=== PATIENT | male | born 1995 | race Hispanic/Latino ===

== ENCOUNTER 2019-09-19 19:42 | Inpatient (IN) | payer OTHER, SELFPAY ==
[~2019-09-19] VITALS: Ht 190.5 cm; Wt 106.5 kg
[2019-09-19 20:23] LABS: BASOPHILS % (AUTO) 0.1 % (0.0-5.0); HEMATOCRIT 43.3 % (42-54); LYMPHOCYTES % (AUTO) 8.7 % (21.0-51.0); MEAN CORPUSCULAR HEMOGLOBIN 27.8 pg (27.0-33.0); MEAN CORPUSCULAR HGB CONC 34.2 g/dL (32.0-36.0); MEAN CORPUSCULAR VOLUME 81.4 fL (80-100); MONOCYTES % (AUTO) 4.3 % (3.0-13.0); NEUTROPHILS % (AUTO) 86.2 % (40.0-77.0); PLATELET COUNT (AUTO) 292 K/uL (130-400); RED BLOOD CELL COUNT(AUTO) 5.32 MIL/uL (4.50-6.20); RED CELL DISTRIBUTION WIDTH 13.2 % (11.0-15.5); WHITE BLOOD COUNT (AUTO) 9.6 K/uL (4.8-10.8)
[2019-09-19 20:32] LABS: CREATININE 0.8 mg/dL (0.5-1.5); POTASSIUM 4.5 mmol/L (3.5-5.1)
[2019-09-19 20:36] LABS: ALBUMIN 3.6 g/dL (3.5-5.0); BILIRUBIN,TOTAL 0.6 mg/dL (0.2-1.0); TOTAL PROTEIN, SERUM 8.3 g/dL (6.0-8.3)
[2019-09-19] MEDS: ALBUTEROL INHALER 90MCG/INH IH SCH (22:00)
[2019-09-19] MEDS ORDERED: ERGOCALCIFEROL (VITAMIN D2) 50,000 UNIT CAPSULE PO ONE (22:00)
[2019-09-19] MEDS ORDERED: ALBUTEROL INHALER 90MCG/INH IH PRN (22:00)
[2019-09-19] MEDS ORDERED: SODIUM CHLORIDE 0.9% 1000ML 1,000 ML IV SCH ×2 (22:02→22:15)
[2019-09-19 22:19] LABS: CRP QUANTITATIVE 78.2 mg/L (0.00-9.0); MAGNESIUM 2.5 mg/dL (1.80-2.40)
[2019-09-19 22:25] LABS: HEMOGLOBIN A1C 5.9 % (4.0-6.0)
[2019-09-19 22:25] LABS: ABG BASE EXCESS 1.5 mmol/L (-2.0-3.0); ABG HCO3 26.1 mmol/L (21.0-28.0); ABG PCO2 41 mmHg (35-48)
[2019-09-19 22:29] LABS: INR 0.99 (0.85-1.15); PARTIAL THROMBOPLASTIN TIME 28.4 SEC (26.3-35.5); PROTHROMBIN TIME 10.7 SEC (9.6-11.6)
[2019-09-19] MEDS ORDERED: DEXAMETHASONE SOD PHOSPHATE 4 MG/ML 5ML VIAL ONE (22:38)
[2019-09-19] MEDS ORDERED: AZITHROMYCIN 500MG+NS 250ML 250 ML IV ONE (22:38)
[2019-09-19] MEDS ORDERED: CEFTRIAXONE SODIUM 1 GM ONE (22:39)
[2019-09-19] MEDS ORDERED: ASCORBIC ACID 500 MG TAB ONE (23:32)
[2019-09-19] MEDS ORDERED: ALBUTEROL INHALER 90MCG/INH IH ONE (23:32)
[2019-09-19] MEDS ORDERED: ZINC SULFATE 220 CAPSULE ONE (23:33)
[2019-09-19] MEDS ORDERED: ENOXAPARIN SODIUM 40 MG/0.4 ML SYRINGE SQ ONE (23:33)
[2019-09-19] MEDS ORDERED: FAMOTIDINE 20MG TAB 20 MG TAB ONE (23:33)
[2019-09-19] MEDS ORDERED: ERGOCALCIFEROL (VITAMIN D2) 50,000 UNIT CAPSULE ONE (23:33)
[2019-09-19] MEDS ORDERED: ONDANSETRON HCL 4 MG/2 ML VIAL ONE (23:45)
[2019-09-20] MEDS ORDERED: ONDANSETRON HCL 4 MG/2 ML VIAL IV PRN
[2019-09-20] MEDS ORDERED: NITROGLYCERIN 0.4 MG SL TAB SL PRN
[2019-09-20] MEDS ORDERED: ACETAMINOPHEN 325 MG TAB PO PRN ×2
[2019-09-20] MEDS ORDERED: DIPHENHYDRAMINE HCL 25 MG CAPSULE PO PRN
[2019-09-20 01:00] LABS: APPEARANCE,URINE Clear (CLEAR); BILIRUBIN,URINE Small (NEGATIVE); COLOR,URINE Dark Yellow (YELLOW); GLUCOSE, URINE (UA) Negative (NEGATIVE); KETONES,URINE Trace mg/dL (NEGATIVE); LEUKOCYTE ESTERASE ,URINE Trace (NEGATIVE); NITRATE,URINE Negative (NEGATIVE); OCCULT BLOOD,URINE Negative (NEGATIVE); PROTEIN,URINE POS 2+ mg/dL (NEGATIVE)
[2019-09-20 01:09] LABS: AMPHET/METH SCREEN,URINE NEGATIVE (NEGATIVE); BACTERIA,URINE Few /HPF (None Seen); BARBITURATE SCREEN, URINE NEGATIVE (NEGATIVE); BENZODIAZEPINES SCREEN,URINE NEGATIVE (NEGATIVE); CANNABINOID SCREEN,URINE NEGATIVE (NEGATIVE); COCAINE SCREEN,URINE NEGATIVE (NEGATIVE); MUCUS,URINE Few LPF (None Seen); OPIATE SCREEN,URINE NEGATIVE (NEGATIVE); PHENCYCLIDINE SCREEN,URINE NEGATIVE (NEGATIVE); RBC,URINE 0-1 /HPF (0-1); SQUAMOUS EPITHELIAL CELL,UR 0-2 /HPF (0-2); WBC,URINE 0-1 /HPF (0-1)
[2019-09-20] MEDS: ALBUTEROL INHALER 90MCG/INH IH SCH ×6 (02:00→22:00)
[2019-09-20] MEDS ORDERED: METHYLPREDNISOLONE SOD SUCC 40MG/ML 1ML ONE ×3 (04:29→20:11)
[2019-09-20 05:20] LABS: HEMATOCRIT 39.8 % (42-54); LYMPHOCYTES % (AUTO) 10.2 % (21.0-51.0); MEAN CORPUSCULAR HGB CONC 33.7 g/dL (32.0-36.0); MEAN CORPUSCULAR VOLUME 83.1 fL (80-100); MONOCYTES % (AUTO) 4.4 % (3.0-13.0); NEUTROPHILS % (AUTO) 84.6 % (40.0-77.0); PLATELET COUNT (AUTO) 271 K/uL (130-400); RED BLOOD CELL COUNT(AUTO) 4.79 MIL/uL (4.50-6.20); RED CELL DISTRIBUTION WIDTH 13.5 % (11.0-15.5); WHITE BLOOD COUNT (AUTO) 6.2 K/uL (4.8-10.8)
[2019-09-20 06:03] LABS: ALBUMIN 3.1 g/dL (3.5-5.0); BILIRUBIN,TOTAL 0.5 mg/dL (0.2-1.0); CREATININE 0.7 mg/dL (0.5-1.5); POTASSIUM 4.6 mmol/L (3.5-5.1); TOTAL PROTEIN, SERUM 7.5 g/dL (6.0-8.3)
[2019-09-20] MEDS ORDERED: ASCORBIC ACID 500 MG TAB ONE (08:32)
[2019-09-20] MEDS ORDERED: ENOXAPARIN SODIUM 40 MG/0.4 ML SYRINGE SQ ONE (08:32)
[2019-09-20] MEDS ORDERED: FAMOTIDINE/PF 20 MG/2 ML VIAL IV ONE ×2 (08:32→20:11)
[2019-09-20] MEDS ORDERED: ZINC SULFATE 220 CAPSULE ONE (08:32)
[2019-09-20] MEDS: FAMOTIDINE 20MG TAB 20 MG TAB PO SCH ×2 (09:00→21:00)
[2019-09-20] MEDS: ASCORBIC ACID 500 MG TAB PO SCH (09:00)
[2019-09-20] MEDS: ZINC SULFATE 220 CAPSULE PO SCH (09:00)
[2019-09-20] MEDS: ENOXAPARIN SODIUM 40 MG/0.4 ML SYRINGE SQ SCH (09:00)
[2019-09-20] MEDS: METHYLPREDNISOLONE SOD SUCC 40MG/ML 1ML IVP SCH ×3 (09:00→21:00)
--- NOTE | 2019-09-20 19:08 | NUR ---
SW NOTE SW attempted to reach patient's brother, Sumit Ro but only spoke to brother's girlfriend. Brother's girlfriend stated that patient's brother had just left but would be back later. She stated that patient's mother is presently also in the hospital as well. SW attempted to call back patient's brother but there was no answer. SW will continue to attempt to contact patient or family to complete IA.
[2019-09-20] MEDS ORDERED: CEFTRIAXONE SODIUM 1 GM ONE (20:11)
[2019-09-20] MEDS ORDERED: AZITHROMYCIN 500MG+NS 250ML 250 ML IV ONE (20:11)
[2019-09-20] MEDS: CEFTRIAXONE SODIUM 1 GM IV SCH (22:00)
[2019-09-20] MEDS: AZITHROMYCIN 500MG+NS 250ML 250 ML IV SCH (22:00)
[2019-09-21] MEDS: ALBUTEROL INHALER 90MCG/INH IH SCH ×6 (02:00→22:00)
[2019-09-21 05:11] LABS: HEMATOCRIT 40.2 % (42-54); LYMPHOCYTES % (AUTO) 13.6 % (21.0-51.0); MEAN CORPUSCULAR HEMOGLOBIN 27.6 pg (27.0-33.0); MEAN CORPUSCULAR HGB CONC 33.8 g/dL (32.0-36.0); MEAN CORPUSCULAR VOLUME 81.7 fL (80-100); MONOCYTES % (AUTO) 10.1 % (3.0-13.0); NEUTROPHILS % (AUTO) 75.7 % (40.0-77.0); PLATELET COUNT (AUTO) 328 K/uL (130-400); RED BLOOD CELL COUNT(AUTO) 4.92 MIL/uL (4.50-6.20); RED CELL DISTRIBUTION WIDTH 13.2 % (11.0-15.5); WHITE BLOOD COUNT (AUTO) 6.2 K/uL (4.8-10.8)
[2019-09-21 05:19] LABS: ALBUMIN 3.3 g/dL (3.5-5.0); BILIRUBIN,TOTAL 0.6 mg/dL (0.2-1.0); CREATININE 0.6 mg/dL (0.5-1.5); CRP QUANTITATIVE 45.4 mg/L (0.00-9.0); POTASSIUM 4.5 mmol/L (3.5-5.1); TOTAL PROTEIN, SERUM 7.1 g/dL (6.0-8.3)
[2019-09-21] MEDS ORDERED: METHYLPREDNISOLONE SOD SUCC 40MG/ML 1ML ONE ×3 (08:40→20:16)
[2019-09-21] MEDS ORDERED: ASCORBIC ACID 500 MG TAB ONE (08:40)
[2019-09-21] MEDS ORDERED: FAMOTIDINE 20MG TAB 20 MG TAB ONE ×2 (08:41→20:16)
[2019-09-21] MEDS ORDERED: ZINC SULFATE 220 CAPSULE ONE (08:41)
[2019-09-21] MEDS ORDERED: ENOXAPARIN SODIUM 40 MG/0.4 ML SYRINGE SQ ONE (08:42)
[2019-09-21] MEDS: FAMOTIDINE 20MG TAB 20 MG TAB PO SCH ×2 (09:01→21:00)
[2019-09-21] MEDS: METHYLPREDNISOLONE SOD SUCC 40MG/ML 1ML IVP SCH ×3 (09:01→21:00)
[2019-09-21] MEDS: ENOXAPARIN SODIUM 40 MG/0.4 ML SYRINGE SQ SCH (09:01)
[2019-09-21] MEDS: ZINC SULFATE 220 CAPSULE PO SCH (09:01)
[2019-09-21] MEDS: ASCORBIC ACID 500 MG TAB PO SCH (09:01)
--- NOTE | 2019-09-21 18:37 | NUR ---
note spoke to pt and states resides at home with mother, but she is currently hospitalized at another hospital. pt is independent with adls/ambulation, no dme. [facility] dc plan is back home at ut. discussed community resources available for followup care, rx assist $4 program [facility],and [facility] for assist,pt verbalizes understanding. Addendum: 09/21/19 at 1839 by GABRIELA IRVING CM Amended: Links added.
[2019-09-21] MEDS ORDERED: AZITHROMYCIN 500MG+NS 250ML 250 ML IV ONE (20:16)
[2019-09-21] MEDS ORDERED: CEFTRIAXONE SODIUM 1 GM ONE (20:16)
[2019-09-21] MEDS ORDERED: SODIUM CHLORIDE 0.9% 100 ML IV ONE (20:20)
[2019-09-21] MEDS: AZITHROMYCIN 500MG+NS 250ML 250 ML IV SCH (22:00)
[2019-09-21] MEDS: CEFTRIAXONE SODIUM 1 GM IV SCH (22:00)
[2019-09-22] MEDS: ALBUTEROL INHALER 90MCG/INH IH SCH ×6 (02:00→22:00)
[2019-09-22 06:59] LABS: ALBUMIN 2.8 g/dL (3.5-5.0); BILIRUBIN,TOTAL 0.7 mg/dL (0.2-1.0); CREATININE 0.5 mg/dL (0.5-1.5); CRP QUANTITATIVE 20.4 mg/L (0.00-9.0); POTASSIUM 3.4 mmol/L (3.5-5.1); TOTAL PROTEIN, SERUM 6.5 g/dL (6.0-8.3)
[2019-09-22 07:37] LABS: BASOPHILS % (AUTO) 0.1 % (0.0-5.0); HEMATOCRIT 42.9 % (42-54); LYMPHOCYTES % (AUTO) 12.9 % (21.0-51.0); MEAN CORPUSCULAR HEMOGLOBIN 27.8 pg (27.0-33.0); MEAN CORPUSCULAR HGB CONC 33.8 g/dL (32.0-36.0); MEAN CORPUSCULAR VOLUME 82.3 fL (80-100); MONOCYTES % (AUTO) 7.5 % (3.0-13.0); NEUTROPHILS % (AUTO) 78.8 % (40.0-77.0); PLATELET COUNT (AUTO) 430 K/uL (130-400); RED BLOOD CELL COUNT(AUTO) 5.21 MIL/uL (4.50-6.20); RED CELL DISTRIBUTION WIDTH 13.2 % (11.0-15.5); WHITE BLOOD COUNT (AUTO) 9.5 K/uL (4.8-10.8)
[2019-09-22] MEDS ORDERED: ZINC SULFATE 220 CAPSULE ONE (07:52)
[2019-09-22] MEDS ORDERED: ENOXAPARIN SODIUM 40 MG/0.4 ML SYRINGE SQ ONE (07:52)
[2019-09-22] MEDS ORDERED: METHYLPREDNISOLONE SOD SUCC 40MG/ML 1ML ONE ×2 (07:52→21:10)
[2019-09-22] MEDS ORDERED: ASCORBIC ACID 500 MG TAB ONE (07:52)
[2019-09-22] MEDS ORDERED: FAMOTIDINE/PF 20 MG/2 ML VIAL IV ONE (07:53)
[2019-09-22] MEDS ORDERED: POTASSIUM CHLORIDE 10MEQ/100ML 100 ML IV PRN (08:00)
[2019-09-22] MEDS ORDERED: POTASSIUM CHLORIDE 20 MEQ ERTAB PO PRN (08:00)
[2019-09-22] MEDS ORDERED: POTASSIUM CHLORIDE 10% ELIXIR 20 MEQ/15 ML UDCUP PO PRN (08:00)
[2019-09-22] MEDS ORDERED: LIDOCAINE HCL-MPF 1% 2ML VIAL IV PRN (08:00)
[2019-09-22] MEDS: METHYLPREDNISOLONE SOD SUCC 40MG/ML 1ML IVP SCH ×3 (09:00→21:00)
[2019-09-22] MEDS: ASCORBIC ACID 500 MG TAB PO SCH (09:00)
[2019-09-22] MEDS: ZINC SULFATE 220 CAPSULE PO SCH (09:00)
[2019-09-22] MEDS: FAMOTIDINE 20MG TAB 20 MG TAB PO SCH ×2 (09:00→21:00)
[2019-09-22] MEDS: ENOXAPARIN SODIUM 40 MG/0.4 ML SYRINGE SQ SCH (09:00)
[2019-09-22] MEDS ORDERED: AZITHROMYCIN 500MG+NS 250ML 250 ML IV ONE (21:10)
[2019-09-22] MEDS ORDERED: FAMOTIDINE 20MG TAB 20 MG TAB ONE (21:10)
[2019-09-22] MEDS ORDERED: CEFTRIAXONE SODIUM 1 GM ONE (21:10)
[2019-09-22] MEDS: CEFTRIAXONE SODIUM 1 GM IV SCH (22:00)
[2019-09-22] MEDS: AZITHROMYCIN 500MG+NS 250ML 250 ML IV SCH (22:00)
[2019-09-23] VITALS (7 sets, daily range): BP systolic 122–149; BP diastolic 67–98
[2019-09-23] MEDS: ALBUTEROL INHALER 90MCG/INH IH SCH ×6 (02:00→22:25)
--- NOTE | 2019-09-23 03:39 | NUR ---
Admission to 3rd Floor Received pt to floor via wheelchair. Alert and oriented. Moderated anxiety. Staff to monitor for SOB on exertion. Skin dry and intact. Pt currently on room air. Urinal at bedside. Call light within reach. instructed pt to call for assistance when attempting to ambulate to restroom and out of bed. Non skid socks on. Telemetry monitoring in place. Pt expresses anxiety regarding returning home. States that he lives alone and desires to feel better to return home so he can assist taking care of his mother who is currently hospitalized. Understands use of IS and MDI at bedside. Use of personal cell phone in room. Addendum: 09/23/19 at 0345 by CHRISTINE TORRES RN RN Amended: Links added.
[2019-09-23 08:02] LABS: BASOPHILS % (AUTO) 0.2 % (0.0-5.0); HEMATOCRIT 45.5 % (42-54); LYMPHOCYTES % (AUTO) 17.3 % (21.0-51.0); MEAN CORPUSCULAR HEMOGLOBIN 27.6 pg (27.0-33.0); MEAN CORPUSCULAR HGB CONC 33.8 g/dL (32.0-36.0); MEAN CORPUSCULAR VOLUME 81.7 fL (80-100); MONOCYTES % (AUTO) 7.4 % (3.0-13.0); PLATELET COUNT (AUTO) 521 K/uL (130-400); RED BLOOD CELL COUNT(AUTO) 5.57 MIL/uL (4.50-6.20); RED CELL DISTRIBUTION WIDTH 13.1 % (11.0-15.5); WHITE BLOOD COUNT (AUTO) 12.7 K/uL (4.8-10.8)
[2019-09-23 08:14] LABS: CREATININE 0.7 mg/dL (0.5-1.5)
[2019-09-23] MEDS: ASCORBIC ACID 500 MG TAB PO SCH (08:31)
[2019-09-23] MEDS: ZINC SULFATE 220 CAPSULE PO SCH (08:32)
[2019-09-23] MEDS: METHYLPREDNISOLONE SOD SUCC 40MG/ML 1ML IVP SCH ×3 (08:32→21:30)
[2019-09-23] MEDS: FAMOTIDINE 20MG TAB 20 MG TAB PO SCH ×2 (08:32→21:30)
[2019-09-23] MEDS: ENOXAPARIN SODIUM 40 MG/0.4 ML SYRINGE SQ SCH (08:33)
--- NOTE | 2019-09-23 08:47 | NUR ---
PATIENT AT REST SATURATING 93%, PATIENT BEGAN AMBULATING IN ROOM DESATURATED TO 89%, C/O MINOR SHORTNESS OF BREATH, NOTED PATIENT WITH STRONG NON PRODUCTIVE COUGH. INESSA SUNSHINE MADE AWARE
[2019-09-23] MEDS: GUAIFENESIN-DM 200/20 MG 10 ML PO PRN ×2 (14:34→21:30)
[2019-09-23] MEDS: BENZONATATE 100 MG CAPSULE PO PRN ×2 (14:36→21:30)
[2019-09-23] MEDS: AZITHROMYCIN 500MG+NS 250ML 250 ML IV SCH (21:30)
[2019-09-23] MEDS: CEFTRIAXONE SODIUM 1 GM IV SCH (21:30)
[2019-09-24] MEDS: ALBUTEROL INHALER 90MCG/INH IH SCH ×5 (03:01→18:04)
[2019-09-24 04:00] VITALS: BP 132/76
[2019-09-24 07:51] LABS: BASOPHILS % (AUTO) 0.2 % (0.0-5.0); HEMATOCRIT 45.3 % (42-54); LYMPHOCYTES % (AUTO) 15.6 % (21.0-51.0); MEAN CORPUSCULAR HEMOGLOBIN 27.6 pg (27.0-33.0); MEAN CORPUSCULAR VOLUME 81.2 fL (80-100); MONOCYTES % (AUTO) 7.7 % (3.0-13.0); NEUTROPHILS % (AUTO) 75.1 % (40.0-77.0); PLATELET COUNT (AUTO) 484 K/uL (130-400); RED BLOOD CELL COUNT(AUTO) 5.58 MIL/uL (4.50-6.20); RED CELL DISTRIBUTION WIDTH 12.9 % (11.0-15.5)
[2019-09-24 08:08] LABS: ALBUMIN 3.5 g/dL (3.5-5.0); BILIRUBIN,TOTAL 0.6 mg/dL (0.2-1.0); CREATININE 0.6 mg/dL (0.5-1.5); CRP QUANTITATIVE 6.9 mg/L (0.00-9.0); TOTAL PROTEIN, SERUM 7.6 g/dL (6.0-8.3)
[2019-09-24 09:04] VITALS: BP 133/80
[2019-09-24] MEDS: METHYLPREDNISOLONE SOD SUCC 40MG/ML 1ML IVP SCH ×2 (10:08→14:32)
[2019-09-24] MEDS: FAMOTIDINE 20MG TAB 20 MG TAB PO SCH (10:09)
[2019-09-24] MEDS: ASCORBIC ACID 500 MG TAB PO SCH (10:09)
[2019-09-24] MEDS: ZINC SULFATE 220 CAPSULE PO SCH (10:09)
[2019-09-24] MEDS: ENOXAPARIN SODIUM 40 MG/0.4 ML SYRINGE SQ SCH (10:10)
[2019-09-24 11:53] VITALS: BP 125/76
[2019-09-24] MEDS ORDERED: DEXA6TAB PO (15:19)
[2019-09-24] MEDS ORDERED: AZIT500T2 PO (15:19)
[2019-09-24 16:38] VITALS: BP 125/68
--- NOTE | 2019-09-24 17:50 | NUR ---
DISCHARGE INSTRUCTION PATIENT GIVEN DISCHARGE INSTRUCTIONS AND VERBALIZED UNDERSTANDING FOLLOW UP APPOINTMENT WITH [facility] GIVEN TELE MEDICATION DR ALCANTARA WILL CALL HIM. MEDICATIONS REVIEWED AND PATIENT VERBALIZED UNDERSTANDING , IV REMOVED WITH CATHETER INTACT AND SITE DRESSED, TELEMETRY MONITORING NOTIFIED AND MONITOR REMOVED, PATIENT INSTRUCTED TO SELF INSOLATE TILL CLEAR MY THE HEALTH DEPARTMENT PATIENT CALL FAMILY AND IS WAITING FOR HIS RIDE, DENIES PAIN AND NO QUESTIONS OR CONCERNS AT THIS TIME
--- NOTE | 2019-09-24 18:35 | NUR ---
PATIENT CALLED AND RIDE HERE , PATIENT TAKING BY WHEELCHAIR TO [facility] TO MET HIS FAMILY AND GO HOME.
== END 2019-09-24 18:45 | disposition home or self-care (01) | DRG 871 ==
LOC: EDH 19:42 → EDHIP 19:43 → 3AH 09-23 02:11
PROVIDERS: ADMIT Internal Medicine; ATTEND Internal Medicine
DX: A41.89 Other specified sepsis (principal); U07.1 COVID-19; J96.01 Acute respiratory failure with hypoxia; J12.89 Other viral pneumonia; R65.20 Severe sepsis without septic shock; E87.6 Hypokalemia
CPT/HCPCS: 36415; 36600; 71045; 80048; 80053; 80305; 81001; 82728; 82803; 82948; 83036; 83605; 83615; 83735; 84145; 85025; 85378; 85610; 85730; 86140; 87040; 87486; 87581; 87633; 87798; 93005; 94760; 99291; G0378; J0456; J0696; J1100; J1650; J2405; J2920; J3490; U0003